=== PATIENT | male | born 2000 | race African-American/Black ===

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

== ENCOUNTER 2020-09-08 20:34 | Emergency (ER) | payer BC ==
[2020-09-08] MEDS ORDERED: Acetaminophen 500 MG TAB ONE (22:51)
== END 2020-09-08 22:55 | disposition home or self-care (01) ==
LOC: ERS 20:34
DX: G40.909 Epilepsy, unspecified, not intractable, without status epilepticus (principal); Z79.899 Other long term (current) drug therapy
CPT/HCPCS: 99283

== ENCOUNTER 2020-10-27 11:07 | Emergency (ER) | payer BC, SELFPAY ==
[2020-10-27] MEDS ORDERED: levETIRAcetam 500 MG/100 ML PREMIX BAG ONE ×3 (12:14→12:35)
[2020-10-27 12:18] LABS: Hemoglobin 14.5 g/dL (14.0-18.0); Mean Corpuscular HGB CONC 31.8 g/dL (32.0-36.0); Mean Corpuscular Hemoglobin 28.9 pg (27.0-31.0); Mean Corpuscular Volume 91.1 fL (78.0-98.0); Mean Platelet Volume 6.8 fL (7.4-10.4); Platelet Count 220 thou/uL (130-400); RBC Distribution Width 12.1 % (11.5-14.5); Red Blood Cell (RBC) Count 5.02 mill/uL (4.70-6.10); White Blood Cell (WBC) Count 4.2 thou/uL (4.8-10.8)
[2020-10-27 12:32] LABS: ALT (SGPT) 20 U/L (8-55); AST (SGOT) 19 U/L (5-34); Albumin 4.4 g/dL (3.5-5.0); Alkaline Phosphatase 53 U/L (40-110); Anion Gap 10 mmol/L (10-20); BUN (Urea Nitrogen) 12 mg/dL (8.9-20.6); Bilirubin, Total 1.2 mg/dL (0.2-1.2); Calc. Creatinine Clearance 0 mL/min (70-130); Calcium 10.4 mg/dL (7.8-10.44); Carbon Dioxide 29 mmol/L (22-29); Chloride 104 mmol/L (98-107); Glucose 79 mg/dL (70-105); Potassium 4.3 mmol/L (3.5-5.1); Protein, Total 7.4 g/dL (6.0-8.3); Sodium 139 mmol/L (136-145)
[2020-10-27 12:44] LABS: Band 1 % (5-11); Lymphocytes 52 % (21-51); MDiff Complete? YES; Monocytes 4 % (0-10); Neutrophil 39 % (42-75); Reactive Lymphocytes 3 % (0-10)
== END 2020-10-27 14:48 | disposition home or self-care (01) ==
LOC: ERS 11:07
DX: R56.9 Unspecified convulsions (principal); Z79.899 Other long term (current) drug therapy
CPT/HCPCS: 36415; 80053; 80175; 80177; 85025; 96365; J1953